=== PATIENT | male | born 1995 | race Caucasian/White ===

== ENCOUNTER 2021-06-21 22:25 | Emergency (ER) | payer OTHER, SELFPAY ==
--- NOTE | 2021-06-21 22:36 | ED_ITS ---
HPI - General Adult General Chief complaint: Toxicology Problem Stated complaint: WITHDRAWALS FROM DRINKING RAISING OF HEART Time Seen by Provider: 06/21/21 22:27 History of Present Illness HPI narrative: Patient is a 25-year-old male. Has a known alcoholic. Has been through rehab multiple times in the past. Is here for evaluation of alcohol withdrawal symptoms. He states that his last drink was prior to arrival here in the emergency department. Prior to that he was trying to quit ?cold turkey ?and so he had not drank for 12-24 hours. He states he is having some shaking, feeli ng like things are crawling up and down him, little anxiety, tachycardia. He states he contacted some friends and family who told him that he should not quit cold turkey so he came to the emergency department for evaluation. Related Data Allergies Allergy/AdvReac Type Severity Reaction Status Date / Time No Known Drug Allergies Allergy Verified 06/21/21 22:42 Review of Systems Constitutional Constitutional: Reports as per HPI Cardiovascular Cardiovascular: Reports as per HPI Respiratory Respiratory: Reports as per HPI Gastrointestinal Gastrointestinal: Reports as per HPI Genitourinary Genitourinary: Reports system reviewed and no additional complaints, except as documented Musculoskeletal Musculoskeletal: Reports system reviewed and no additional complaints, except as documented Integumentary/Breasts Skin/Breast: Reports system reviewed and no additional complaints, except as documented Neurologic Neurologic: Reports as per HPI Hematologic/Lymphatic On Anticoagulants: No Allergic/Immunologic Allergic/Immunologic: Reports system reviewed and no additional complaints, except as documented Patient History Medical History Alcohol abuse Social History Smoking Status: Current every day smoker Exam Initial Vital Signs Initial Vital Signs: Vital Signs Temperature 98.4 F 06/21/21 22:40 Pulse Rate 108 H 06/21/21 22:40 Respiratory Rate 20 06/21/21 22:40 Blood Pressure 136/100 H 06/21/21 22:40 Pulse Oximetry 96 06/21/21 22:40 Const General: cooperative and comfortable HENMT Head: normal to inspection and normocephalic Resp Effort & Inspection: normal respiratory effort Cardio Rate: regular rate Skin General: no rashes or lesions noted Neuro General: patient alert, patient awake, patient oriented x3 and moves all extremities Extrem General: normal to inspection and capillary refill normal Psych Appearance: grossly normal and well kempt Course Orders Ordered: ED Orders 06/21/21 23:00 Complete Blood Count AUTO DIFF Stat Comprehensive Metabolic Panel Stat Ethanol (ETOH) Stat Lipase Stat Discontinued Medications Sodium Chloride (Normal Saline 0.9%) 1,000 mls @ 100 mls/hr IV CONT SALLY Last Infusion: 06/22/21 00:02 Dose: 100 mls/hr Documented by: Admin: 06/21/21 23:08 Dose: 100 mls/hr Documented by: SKYE Lorazepam (Lorazepam 2 Mg/Ml Inj) 1 mg IV NOW ONE Stop: 06/21/21 22:45 Last Admin: 06/21/21 23:08 Dose: 1 mg Documented by: SKYE Phenobarbital (Phenobarbital 65 Mg/Ml Vial) 260 mg IV NOW ONE Stop: 06/21/21 22:45 Last Admin: 06/21/21 23:17 Dose: 260 mg Documented by: SKYE Vital Signs Vital signs: Vital Signs - 8 hr 06/21/21 22:40 06/21/21 23:23 06/21/21 23:30 Temperature 98.4 F Pulse Rate 108 H 93 H 90 Respiratory Rate 20 Blood Pressure 136/100 H 132/81 Pulse Oximetry 96 99 98 06/22/21 00:00 Temperature Pulse Rate 88 Respiratory Rate Blood Pressure 126/71 Pulse Oximetry 98 Medical Decision Making Lab Data Lab results reviewed: Yes I reviewed the patient's lab results. Result diagrams: 06/21/21 23:00 06/21/21 23:00 Labs: Lab Results 06/21/21 06/21/21 Range/Units 23:00 23:00 WBC 4.8 (4.5-11.0) X10^3/uL RBC 4.77 (4.5-5.9) X10^6/uL Hgb 13.5 (13.5-17.5) g/dL Hct 39.9 L (41-53) % MCV 83.7 (80-100) fL MCH 28.3 (26-34) PG MCHC 33.8 (30-36) % RDW 12.7 (11.6-14.8) % Plt Count 240 (150-400) X10^3/uL Neut % (Auto) 45.5 L (50-75) % Lymph % (Auto) 44.2 H (25-40) % Jessamine % (Auto) 9.1 (3-14) % Eos % (Auto) 0.0 L (2-4) % Baso % (Auto) 1.2 (0-2) % Neut # (Auto) 2200 (4547-1072) /uL Lymph # (Auto) 2100 (2382-0313) /uL Jessamine # (Auto) 400 (0-900) /uL Eos # (Auto) 0 (0-450) /uL Baso # (Auto) 100 (0-100) /uL Sodium 142 (137-145) mmol/L Potassium 3.9 (3.4-5.1) mmol/L Chloride 109 H (98-107) mmol/L Carbon Dioxide 25 (22-32) mmol/L BUN 10 (9-20) mg/dL Creatinine 0.74 (0.66-1.25) mg/dL Estimated GFR > 60.0 (>60) mL/min BUN/Creatinine Ratio 13.5 (6-22) Glucose 97 (70-100) mg/dL Calcium 9.1 (8.4-10.2) mg/dL Total Bilirubin 0.3 (0.2-1.3) mg/dL AST 28 (17-59) IU/L ALT 29 (<50) IU/L Alkaline Phosphatase 58 (38-126) U/L Total Protein 6.9 (6.3-8.2) g/dL Albumin 4.3 (3.5-5.0) g/dL Globulin 2.6 (1.7-4.1) g/dL Albumin/Globulin Ratio 1.7 (1.0-2.8) Lipase 28 (23-300) U/L Ethyl Alcohol 43 H ( - 10) mg/dL [facility] Narrative Medical decision making narrative: Patient is having symptoms consistent with alcohol withdrawal. He was given Ativan and phenobarbital which completely resolved all of his symptoms. He is alert oriented x3. Has a GCS of 15 in my pain is capacity to make decisions. Had a long discussion with him regarding his options to include us helping him find a rehab facility. Informed him that I would not provide medications for him to ?detox at home ?after this discussion the patient opted to be discharged home. 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 He states he does have quite a bit of home support. He was given return precautions and follow-up instructions. He expressed understanding agreement. Discharge Plan Departure Patient Disposition: Home Clinical Impression: Alcohol withdrawal Instructions: DI for Alcohol Use Disorder Activity Restrictions/Additional Instructions: I do recommend that tomorrow you contact your [employer]. You can return to the emergency department at any time for new or worsening symptoms.
[2021-06-21 22:40] VITALS: BP 136/100; PULSE 108; RESP 20; TEMP 36.9; O2SAT 96; BMI 27.1
[2021-06-21] MEDS: LORazepam 2 MG/ML INJ 1 MG IV (23:08)
[2021-06-21] MEDS: SODIUM CHLORIDE 0.9% 1,000 ML 100 ML IV (23:08)
[2021-06-21 23:10] LABS: Add Manual Diff / Slide Review NO; Basophils Absolute Auto 100 /uL (0-100); Basophils Percent Auto 1.2 % (0-2); Eosinophils Absolute Auto 0 /uL (0-450); Hematocrit 39.9 % (41-53); Hemoglobin 13.5 g/dL (13.5-17.5); Lymphocytes Absolute Auto 2100 /uL (1100-4500); Lymphocytes Percent Auto 44.2 % (25-40); Mean Corpuscular HGB Conc 33.8 % (30-36); Mean Corpuscular Hemoglobin 28.3 PG (26-34); Mean Corpuscular Volume 83.7 fL (80-100); Monocytes Absolute Auto 400 /uL (0-900); Monocytes Percent Auto 9.1 % (3-14); Neutrophils Absolute Auto 2200 /uL (1500-7000); Neutrophils Percent Auto 45.5 % (50-75); Platelet Count 240 X10^3/uL (150-400); Red Blood Cell Count 4.77 X10^6/uL (4.5-5.9); Red Cell Distribution Width 12.7 % (11.6-14.8); White Blood Cell Count 4.8 X10^3/uL (4.5-11.0)
[2021-06-21] MEDS: PHENobarbital 65 MG/ML VIAL 260 MG IV (23:17)
[2021-06-21 23:22] LABS: Alanine Aminotransferase 29 IU/L (<50); Albumin 4.3 g/dL (3.5-5.0); Albumin Globulin Ratio 1.7 (1.0-2.8); Alkaline Phosphatase 58 U/L (38-126); Aspartate Aminotransferase 28 IU/L (17-59); BUN Creatinine Ratio 13.5 (6-22); Bilirubin Total 0.3 mg/dL (0.2-1.3); Blood Urea Nitrogen 10 mg/dL (9-20); Calcium 9.1 mg/dL (8.4-10.2); Carbon Dioxide 25 mmol/L (22-32); Chloride 109 mmol/L (98-107); Estimated Glomerular Filt Rate > 60.0 mL/min (>60); Ethanol (ETOH) 43 mg/dL; Globulin 2.6 g/dL (1.7-4.1); Glucose 97 mg/dL (70-100); HEMOLYSIS < 15 (0-50); Lipase 28 U/L (23-300); Potassium 3.9 mmol/L (3.4-5.1); Sodium 142 mmol/L (137-145); Total Protein 6.9 g/dL (6.3-8.2)
[2021-06-21 23:23] VITALS: PULSE 93; O2SAT 99
[2021-06-21 23:30] VITALS: BP 132/81; PULSE 90; O2SAT 98
[2021-06-22] VITALS: BP 126/71; PULSE 88; O2SAT 98
== END 2021-06-22 00:12 | disposition home or self-care (01) ==
PROVIDERS: Emergency Provider Emergency Medicine
DX: F10.239 Alcohol dependence with withdrawal, unspecified (principal)
CPT/HCPCS: 36415; 80053; 80320; 83690; 85025; 96361; 96374; 96375; 99284; J2060; J2560

== ENCOUNTER 2021-06-23 15:13 | Emergency (ER) | payer OTHER, SELFPAY ==
[2021-06-23 15:19] VITALS: BP 135/85; PULSE 79; RESP 18; TEMP 36.7; O2SAT 98; BMI 27.1
[2021-06-23 18:55] VITALS: BP 120/85; PULSE 70; RESP 18; TEMP 36.4; O2SAT 97
--- NOTE | 2021-06-23 19:16 | ED.RECABL ---
HPI - Recheck/Abnormal Lab/Rx General Chief Complaint: Recheck/Abnormal Lab/Rx Stated Complaint: ALCOHOL WITHDRAWL WAS HERE ON MONDAY Time Seen by Provider: 06/23/21 15:47 Source: patient Mode of arrival: Ambulatory Limitations: no limitations History of Present Illness HPI narrative: Patient here for alcohol withdrawal. No altered mental status. Seen here 2 days ago for the same. Improved with phenobarbital and Ativan. Patient is with the . Is escorted at all times. Is set to fly out 7:00 a.m. tomorrow morning to rehab in [place] with the . Need script for withdrawals for the trip. Patient states Librium works very well for him in the past. No SI or HI. No hallucinations. No seizures. No nausea or vomiting. He states today he just felt very anxious and as if the withdrawals were coming back. Patient very pleasant. Not combative. Related Data Previous Rx's Medication Instructions Recorded chlordiazepoxide HCl 25 mg capsule 25 mg PO Q8H PRN #9 cap 06/23/21 Allergies Allergy/AdvReac Type Severity Reaction Status Date / Time No Known Drug Allergies Allergy Verified 06/23/21 15:19 Review of Systems Review of Systems Narrative: GENERAL: Denies chills, fatigue, malaise, fever, sweats. HEENT: Denies sinus pain, ear pain, sore throat RESPIRATORY: Denies dyspnea, cough CARDIOVASCULAR: Denies chest pain, palpitations GASTROINTESTINAL: Denies nausea, vomiting, abdominal pain : Denies dysuria, frequency, hematuria MUSCULOSKELETAL: denies muscle or bony pain SKIN: Denies rash, skin lesions NEUROLOGIC: Denies weakness, numbness, no altered mental status, no seizures. Does feel anxious. At time tremulous. Patient History Medical History Alcohol abuse Social History Smoking Status: Current every day smoker Smoking Status: Current every day smoker tobacco type: smokeless tobacco alcohol intake frequency: 3 or more drinks per day Alcohol type: beer and hard liquor Substance Use Type: does not use Exam Narrative Exam Narrative: GENERAL: in no distress, not toxic not dyspneic HEAD: Normocephalic. EYES: Pupils equal round No scleral icterus. No injection no discharge ENT: Mucous membranes moist. NECK: Trachea midline. CARDIOVASCULAR: Regular rate and rhythm without murmurs RESPIRATORY: Clear to auscultation. Breath sounds equal bilaterally. No wheezes, rales, or rhonchi. GASTROINTESTINAL: Abdomen soft, non-tender EXTREMITIES: No gross deformities. BACK: No flank tenderness. NEURO: AOx4. Clear speech, slightly tremulous less shaky with the hands SKIN: Warm and dry PSYCH: Not anxious, is cooperative, no SI no HI and no hallucination Initial Vital Signs Initial Vital Signs: Vital Signs Temperature 98.1 F 06/23/21 15:19 Pulse Rate 79 06/23/21 15:19 Respiratory Rate 18 06/23/21 15:19 Blood Pressure 135/85 06/23/21 15:19 Pulse Oximetry 98 06/23/21 15:19 Course Course Course Narrative: No seizures here. Low CIWA score while here. Orders Ordered: Discontinued Medications Phenobarbital (Phenobarbital 65 Mg/Ml Vial) 260 mg IM NOW ONE Stop: 06/23/21 19:23 Last Admin: 06/23/21 19:29 Dose: 260 mg Documented by: FRANCISCO Reevaluation(s) Reevaluation #1: Patient agrees with treatment plan and with medications and prescription for getting through 10 a and tomorrow for his flight to rehab. He will be accompanied Time: 19:31 Vital Signs Vital signs: Vital Signs - 8 hr 06/23/21 15:19 06/23/21 18:55 Temperature 98.1 F 97.6 F Pulse Rate 79 70 Respiratory Rate 18 18 Blood Pressure 135/85 120/85 Pulse Oximetry 98 97 MDM - Recheck/Abnormal Lab/Rx Differential Diagnosis Differential diagnosis: Likely other (Alcohol withdrawal) MDM Narrative Medical decision making narrative: Appropriate for discharge home. Exam reassuring. No laboratory studies indicated. Patient was just here 2 days ago. No altered mental status no SI HI. No hallucinations. No seizures. Patient is in continuous attendance by miliatry personnel Discharge Plan Departure Patient Disposition: Home Clinical Impression: Alcohol withdrawal Qualifiers: Complication of substance-induced condition: uncomplicated Qualified Code(s): F10.230 - Alcohol dependence with withdrawal, uncomplicated Activity Restrictions/Additional Instructions: No driving or operating machinery. Be sure to be on airplane tomorrow 7:00 a.m. for your Flight for rehab. Return if worse if any questions or concerns surface any seizures or confusion or any nausea or vomiting. Do not drink alcohol. Keep well hydrated. Prescriptions: New chlordiazepoxide HCl 25 mg capsule 25 mg PO Q8H PRN (Reason: alcohol withdrawal) Qty: 9 RF: 0
[2021-06-23] MEDS: PHENobarbital 65 MG/ML VIAL 260 MG IM (19:29)
[2021-06-23 19:47] VITALS: BP 125/73; PULSE 67; RESP 17; O2SAT 99
== END 2021-06-23 19:48 | disposition home or self-care (01) ==
PROVIDERS: Emergency Provider Emergency Medicine
DX: F10.230 Alcohol dependence with withdrawal, uncomplicated (principal); F41.9 Anxiety disorder, unspecified
CPT/HCPCS: 96372; 99283; J2560